=== PATIENT | male | born 1990 | race Caucasian/White ===

== ENCOUNTER 2021-02-27 16:35 | Inpatient (IN) | payer MEDICAID, OTHER ==
[~2021-02-27] VITALS: Ht 182.9 cm; Wt 91.0 kg
[2021-02-27] MEDS ORDERED: SODIUM CHLORIDE 0.9% 2,000 ML IV ONE (17:15)
[2021-02-27 18:47] LABS: HEMATOCRIT 55.7 % (42.0-52.0); HEMOGLOBIN 16.6 g/dL (14.0-18.0); MEAN CORPUSCULAR HEMOGLOBIN 30.1 pg (28.0-32.0); MEAN CORPUSCULAR VOLUME 101.2 fL (80.0-94.0); PLATELET 242 x1000/uL (130-400); RED CELL DISTRIBUTION WIDTH 14.1 % (11.6-14.6)
[2021-02-27 18:49] LABS: CHLORIDE 97 mEq/L (98-107)
[2021-02-27 18:57] LABS: BETA HYDROXYBUTYRATE 8.2 mMol/L (0.0-0.3)
[2021-02-27] MEDS ORDERED: SODIUM CHLORIDE 0.9% 1,000 ML IV STA (19:16)
[2021-02-27] MEDS ORDERED: INSULIN REGULAR (DRIP) 100 UNITS in SODIUM CHLORIDE 0.9% 100 ML IV STA (19:16)
[2021-02-27] MEDS ORDERED: INSULIN REGULAR (HUMULIN R) UD 100 UNITS/ML SYR IV ONE (20:45)
[2021-02-27] MEDS ORDERED: ONDANSETRON HCL 4MG/2ML INJ IV PRN (22:30)
[2021-02-27] MEDS ORDERED: ACETAMINOPHEN 325MG TABLET PO PRN ×2 (22:30)
[2021-02-27] MEDS ORDERED: INSULIN REGULAR (DRIP) 100 UNITS in SODIUM CHLORIDE 0.9% 99 ML IV NR (22:40)
[2021-02-27] MEDS: SODIUM CHLORIDE 0.9% 1,000 ML IV SCH (23:32)
[2021-02-27 23:34] LABS: CHLORIDE 104 mEq/L (98-107)
[2021-02-27 23:39] LABS: PHOSPHORUS 5.4 mg/dL (2.5-4.9)
[2021-02-28 00:55] LABS: CHLORIDE 108 mEq/L (98-107)
[2021-02-28 01:00] LABS: PHOSPHORUS 3.8 mg/dL (2.5-4.9)
[2021-02-28] MEDS ORDERED: INSULIN REGULAR (HUMULIN R) 300UNITS/3ML VIAL IV NR (01:15)
[2021-02-28] MEDS ORDERED: SODIUM BICARBONATE 8.4% 1 MEQ/ML 50ML SYR IV NR (01:30)
[2021-02-28] MEDS ORDERED: DEXT 5%/0.45% NACL 1000ML IV SCH (01:30)
[2021-02-28] MEDS ORDERED: INSULIN REGULAR (DRIP) 100 UNITS in SODIUM CHLORIDE 0.9% 99 ML IV NR (01:45)
[2021-02-28] MEDS ORDERED: INSULIN REGULAR (DRIP) 100 UNITS in SODIUM CHLORIDE 0.9% 100 ML IV SCH (05:30)
[2021-02-28] MEDS ORDERED: DEXTROSE 50% WATER 50ML SYRINGE IV PRN ×2 (05:30)
[2021-02-28 05:33] LABS: BASOPHILS % 0.5 % (0.0-2.0); HEMATOCRIT. 55.8 % (42.0-52.0); HEMOGLOBIN. 17.9 g/dL (14.0-18.0); LYMPHOCYTES % 8.7 % (20.0-50.0); MEAN CORPUSCULAR HEMOGLOBIN 29.1 pg (28.0-32.0); MEAN CORPUSCULAR VOLUME 90.8 fL (80.0-94.0); MEAN PLATELET VOLUME 11.2 fl (7.4-10.4); MONOCYTES % 8.7 % (2.0-8.0); NEUTROPHILS % 82.1 % (40.0-76.0); PLATELET 175 x1000/uL (130-400); RED BLOOD CELL COUNT 6.14 mill/uL (4.7-6.1); RED CELL DISTRIBUTION WIDTH 13.4 % (11.6-14.6)
[2021-02-28 05:37] LABS: CHLORIDE 113 mEq/L (98-107)
[2021-02-28 05:45] LABS: PHOSPHORUS 2.3 mg/dL (2.5-4.9)
[2021-02-28] MEDS: BLOOD SUGAR DIAGNOSTIC STRIP TEST SCH ×17 (06:30→22:00)
[2021-02-28] MEDS ORDERED: SODIUM CHLORIDE 0.9% 1,000 ML IV SCH (08:30)
[2021-02-28] MEDS ORDERED: DEXT 5%/0.45% NACL KCL 20MEQ/L 1,000 ML IV SCH (17:30)
[2021-02-28] MEDS: SODIUM CHLORIDE 0.9% 1,000 ML IV SCH (18:16)
[2021-03-01] MEDS: BLOOD SUGAR DIAGNOSTIC STRIP TEST SCH ×7 (00:55→21:44)
[2021-03-01] MEDS ORDERED: LIDOCAINE HCL/PF 1% 2ML VIAL ONE (09:00)
[2021-03-01 09:23] LABS: HEMATOCRIT. 42.3 % (42.0-52.0); HEMOGLOBIN. 14.7 g/dL (14.0-18.0); MEAN CORPUSCULAR HEMOGLOBIN 29.9 pg (28.0-32.0); MEAN CORPUSCULAR VOLUME 85.8 fL (80.0-94.0); MEAN PLATELET VOLUME 9.9 fl (7.4-10.4); PLATELET 123 x1000/uL (130-400); RED BLOOD CELL COUNT 4.92 mill/uL (4.7-6.1); RED CELL DISTRIBUTION WIDTH 13.5 % (11.6-14.6)
[2021-03-01 09:34] LABS: CHLORIDE 113 mEq/L (98-107)
[2021-03-01 09:40] LABS: PHOSPHORUS 1.2 mg/dL (2.5-4.9)
[2021-03-01] MEDS ORDERED: POTASSIUM CHLORIDE 20MEQ TABLET SR PO NR (11:30)
[2021-03-01] MEDS ORDERED: DEXTROSE 50% WATER 50ML SYRINGE IV PRN (11:30)
[2021-03-01] MEDS: INSULIN LISPRO 100 UNITS/ML SUBCUT SCH ×3 (12:00→22:11)
[2021-03-01] MEDS ORDERED: POTASSIUM PHOS,M-BASIC-D-BASIC 30 MMOL in DEXT 5% WATER 500 ML IV NR (12:00)
[2021-03-01 13:19] LABS: ATYPICAL LYMPHOCYTES 1; PLATELET ESTIMATE SLIGHTLY DECREASED
[2021-03-01] MEDS ORDERED: IPRATROPIUM/ALBUTEROL 0.5-3(2.5)MG/3ML NEB HHN PRN (13:45)
[2021-03-01] MEDS ORDERED: HYDROCODONE/ACETAMINOPHEN 5/325MG TABLET PO PRN (13:45)
[2021-03-01] MEDS ORDERED: LORAZEPAM 2MG/ML CPJ IV PRN (13:45)
[2021-03-01] MEDS ORDERED: CEFTRIAXONE 1 G PREMIX 50 ML IV SCH (13:45)
[2021-03-01 14:17] LABS: BG CARBOXYHEMOGLOBIN 0.7 % (0.5-1.5); BG HCO3 ACT 16.9 mmol/L (22.0-26.0); BG METHEMOGLOBIN 0.2 % (0.0-1.5); BG OXYHEMOGLOBIN 97.1 % (94.0-97.0); BG PCO2 27.2 mmHg (35.0-45.0); BG PH 7.411 (7.350-7.450); BG PO2 99.6 mmHg (75.0-100.0); BG SAMPLE SITE RIGHT RADIAL; BG VENT MODE ROOM AIR
[2021-03-01] MEDS: INSULIN GLARGINE UD 100 UNITS/ML SYR SUBCUT SCH (14:18)
[2021-03-01] MEDS ORDERED: AZITHROMYCIN 500 MG in DEXT 5% WATER 250 ML IV SCH (15:00)
[2021-03-01] MEDS ORDERED: CEFTRIAXONE 1,000 MG in DEXTROSE 5% WATER 50 ML IV SCH (15:00)
[2021-03-01] MEDS: ENOXAPARIN 40MG/0.4ML SYR SUBCUT SCH (15:26)
[2021-03-01] MEDS: FAMOTIDINE 20MG/2ML VIAL IV SCH (15:27)
[2021-03-01 16:23] LABS: INR 1.1; PROTHROMBIN TIME 11.3 sec (9.6-11.0)
[2021-03-01 16:33] LABS: T4 FREE 1.22 ng/dL (0.76-1.46)
[2021-03-01] MEDS: SODIUM CHLORIDE 0.45% 1,000 ML IV SCH (17:19)
[2021-03-02] MEDS: SODIUM CHLORIDE 0.45% 1,000 ML IV SCH (03:25)
[2021-03-02 05:13] LABS: BASOPHILS % 0.2 % (0.0-2.0); EOSINOPHILS % 0.1 % (0.0-5.0); HEMATOCRIT. 42.9 % (42.0-52.0); HEMOGLOBIN. 14.4 g/dL (14.0-18.0); LYMPHOCYTES % 15.8 % (20.0-50.0); MEAN CORPUSCULAR HEMOGLOBIN 29.3 pg (28.0-32.0); MEAN CORPUSCULAR VOLUME 87.7 fL (80.0-94.0); MEAN PLATELET VOLUME 10.8 fl (7.4-10.4); MONOCYTES % 14.6 % (2.0-8.0); NEUTROPHILS % 69.3 % (40.0-76.0); PLATELET 128 x1000/uL (130-400); RED CELL DISTRIBUTION WIDTH 13.7 % (11.6-14.6)
[2021-03-02 05:19] LABS: CHLORIDE 106 mEq/L (98-107)
[2021-03-02 05:25] LABS: PHOSPHORUS 2.9 mg/dL (2.5-4.9)
[2021-03-02] MEDS: BLOOD SUGAR DIAGNOSTIC STRIP TEST SCH ×2 (07:03→11:10)
[2021-03-02] MEDS: INSULIN LISPRO 100 UNITS/ML SUBCUT SCH ×2 (07:05→13:35)
[2021-03-02] MEDS: FAMOTIDINE 20MG/2ML VIAL IV SCH (11:01)
[2021-03-02] MEDS: INSULIN GLARGINE UD 100 UNITS/ML SYR SUBCUT SCH (11:01)
[2021-03-02] MEDS ORDERED: POTASSIUM CHLORIDE 20MEQ TABLET SR PO SCH (11:15)
[2021-03-02] MEDS: ENOXAPARIN 40MG/0.4ML SYR SUBCUT SCH (14:00)
[2021-03-02] MEDS ORDERED: INSULIN LISPRO 100 UNITS/ML SUBCUT NR (15:30)
[2021-03-02] MEDS ORDERED: ALBU90AE INH (15:34)
[2021-03-02] MEDS ORDERED: INSLIS SUBCUT (15:34)
[2021-03-02] MEDS ORDERED: INSU100I28 SQ ×3 (15:34→15:45)
[2021-03-02] MEDS ORDERED: LANC1COM2 MC (15:34)
[2021-03-02] MEDS ORDERED: BLOO-1465 MT (15:34)
[2021-03-02] MEDS ORDERED: LEVO500T89 MT (15:34)
[2021-03-02] MEDS ORDERED: NALOXONE HCL 0.4MG/ML VIAL IV PRN (16:00)
[2021-03-02] MEDS ORDERED: CEFTRIAXONE SODIUM 1 G/VIAL ONE (16:00)
[2021-03-02 17:30] VITALS: BP 116/75
== END 2021-03-02 17:30 | disposition home or self-care (01) | DRG 420 ==
LOC: ER 16:35 → MICUSO 20:39 → EDBEDREQ 20:43 → EDBEDREQTM 20:43
PROVIDERS: ADMIT Internal Medicine; ATTEND Internal Medicine
DX: E11.10 Type 2 diabetes mellitus with ketoacidosis without coma (principal); R65.11 Systemic inflammatory response syndrome (SIRS) of non-infectious origin with acute organ dysfunction; J12.82 Pneumonia due to coronavirus disease 2019; U07.1 COVID-19; G93.41 Metabolic encephalopathy; K85.90 Acute pancreatitis without necrosis or infection, unspecified; E87.1 Hypo-osmolality and hyponatremia; E86.0 Dehydration; E87.6 Hypokalemia; I10 Essential (primary) hypertension; D72.825 Bandemia; Z79.82 Long term (current) use of aspirin; Z79.899 Other long term (current) drug therapy; Z86.73 Personal history of transient ischemic attack (TIA), and cerebral infarction without residual deficits; F41.9 Anxiety disorder, unspecified; R00.0 Tachycardia, unspecified
CPT/HCPCS: 36415; 36600; 71045; 80048; 80053; 80061; 80329; 82010; 82375; 82805; 82962; 83036; 83605; 83735; 84100; 84132; 84439; 84443; 84484; 85025; 85027; 87426; 93005; 99291; J0456; J0696; J1650; J1815; J2405; J3490; J7030; J7050; J7060; U0003; U0005